=== PATIENT | male | born 1985 | race African-American/Black ===

== ENCOUNTER 2016-09-19 00:09 | Emergency (ER) | payer OTHER ==
[2016-09-19 00:39] VITALS: BP 134/70; PULSE 85; TEMP 97.7; BMI 29.9
[2016-09-19] MEDS ORDERED: KETOROLAC TROMETHAMINE 60 MG/2 ML VIAL IM ONE (01:51)
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
[2016-09-19] MEDS ORDERED: KETOROLAC TROMETHAMINE 60 MG/2 ML VIAL ONE (01:59)
== END 2016-09-19 02:08 | disposition home or self-care (01) ==
LOC: JER 00:09
PROC: 3E0233Z Introduction of Anti-inflammatory into Muscle, Percutaneous Approach (ICD-10-PCS; principal; 2016-09-19)
DX: Z04.1 Encounter for examination and observation following transport accident (principal); V43.52XA Car driver injured in collision with other type car in traffic accident, initial encounter; Y93.89 Activity, other specified; Y92.410 Unspecified street and highway as the place of occurrence of the external cause
CPT/HCPCS: 99282-25